=== PATIENT | female | born 1990 | race African-American/Black ===

== ENCOUNTER 2018-11-15 20:05 | Emergency (ER) | payer MEDICAID ==
[~2018-11-15] VITALS: Ht 157.5 cm; Wt 40.8 kg
[~2018-11-15 20:05] MED LIST: FOLI200T; MARIJUANA; METF-370 PO; NOR10T PO
[2018-11-15] MEDS ORDERED: SODIUM CHLORIDE 0.9% 1,000 ML IV ONE ×2 (20:45→23:30)
[2018-11-15] MEDS ORDERED: ONDANSETRON HCL 4 MG/2 ML VIAL IV ONE (21:15)
[2018-11-15] MEDS ORDERED: HYDROmorphone HCL 2 MG/ML VL IV ONE (21:15)
[2018-11-15 21:52] LABS: Hemoglobin 7.4 g/dL (12.2-16.2); Monocytes # (auto) 1.6 uL
[2018-11-15 21:55] LABS: Basophils # (auto) 0.2 uL; Basophils % (auto) 1.1 % (0.0-2.0); Eosinophils # (auto) 0.4 uL; Eosinophils % (auto) 2.6 % (0.0-7.0); Hematocrit 19.2 % (36.0-46.0); Lymphocytes # (auto) 3.2 uL; Lymphocytes % (auto) 22.1 % (10.0-50.0); Mean Corpuscular Hemoglobin 35.3 pg (28.0-32.0); Mean Corpuscular Volume 91.4 fL (80.0-100.0); Monocytes % (auto) 11.4 % (0.0-12.0); Neutrophils % (auto) 62.8 % (37.0-80.0); Platelet Count (auto) 368 10^3/uL (140-450); White Blood Cell 14.3 10^3/uL (4.4-10.8)
[2018-11-15 21:59] LABS: Mean Corpuscular Hgb Conc. 38.7 g/dL (32.0-36.0); Nucleated Red Blood Cells % 4.1 %
[2018-11-15] MEDS ORDERED: diphenhdrAMINE HCL 50 MG/1 ML VL IV ONE (22:00)
[2018-11-15 22:07] LABS: Albumin 3.9 g/dL (3.4-5.0); BUN/Creatinine Ratio 11.4; Calcium 8.9 mg/dL (8.5-10.1); Potassium 3.6 mmol/L (3.5-5.1)
[2018-11-15 22:10] LABS: Bilirubin, Total 6.6 mg/dL (0.2-1.0); Total Protein 6.9 g/dL (6.4-8.2)
[2018-11-15 23:49] VITALS: BP 116/64
[2018-11-16 00:09] LABS: Urine Bacteria FEW /hpf (None Seen); Urine Blood TRACE /uL (Negative); Urine Specific Gravity 1.008 (1.001-1.035); Urine WBC 1 /hpf (0 - 5)
[2018-11-16 00:12] LABS: Urine Pregnacy Test Negative (Negative)
[2018-11-16 00:17] LABS: Alcohol, Urine < 3.0 mg/dL (0-5); Amphetamine Screen, Urine NEGATIVE (NEGATIVE); Barbiturate Scree,Urine NEGATIVE (NEGATIVE); Benzodiazephine Screen, Urine NEGATIVE (NEGATIVE); Cannabinoid Screen, Urine POSITIVE (NEGATIVE); Cocaine Screen, Urine NEGATIVE (NEGATIVE); Opiate Scree,Urine NEGATIVE (NEGATIVE); Phencyclidine Screen, Urine NEGATIVE (NEGATIVE)
== END 2018-11-16 03:49 | disposition home or self-care (01) ==
LOC: ER 20:05
DX: D57.00 Hb-SS disease with crisis, unspecified (principal); M79.10 Myalgia, unspecified site; E11.9 Type 2 diabetes mellitus without complications
CPT/HCPCS: 36415; 80053; 80307; 80329; 81001; 81025; 85025; 85045; 96374; 96375; 99283; J1170; J1200; J2405; J7030; 96361